=== PATIENT | female | born 1950 | race Caucasian/White ===

== ENCOUNTER 2018-07-24 10:58 | Day surgery (SDC) | payer MEDICARE ==
[2018-07-24 11:57] VITALS: BMI 24.5
[2018-07-24] MEDS ORDERED: Propofol 10 mg/ml Inj (20 ML) ONE (12:55)
[2018-07-24] MEDS ORDERED: Vasopressin 20 Units/ml Inj ONE (13:18)
[2018-07-24] MEDS ORDERED: Lidocaine Hydrochloride 5 ML INJ ONE (13:22)
[2018-07-24] MEDS ORDERED: HYDROmorphone 0.5 mg/0.5 ml ISec IVP PRN (13:40)
[2018-07-24] MEDS ORDERED: HYDROmorphone 0.5 mg/0.5 ml ISec ONE (13:43)
[2018-07-24 15:56] VITALS: RESP 15
[2018-07-24 15:59] VITALS: BP 113/71; PULSE 71; TEMP 97.9; O2SAT 98
--- NOTE | 2018-07-25 06:51 | OP ---
PROCEDURE DATE: 07/24/2018 PREOPERATIVE DIAGNOSIS: Endometrial polyp. POSTOPERATIVE DIAGNOSIS: Endometrial polyp. INDICATIONS: The patient is a 67-year-old with endometrial polyp found on ultrasound. She was counseled for the above procedure and risks, benefits, and alternatives were discussed. Consents were signed and we proceeded to the OR. OPERATIVE PROCEDURE: The patient was taken to the OR where anesthesia was found to be adequate. She was prepped and draped in the usual sterile fashion in dorsal lithotomy position. The cervix was grasped with a single-tooth tenaculum. It was serially dilated to allow introduction of operative hysteroscope. The cavity was visualized with the findings below. The specimen and the endometrium were circumferentially resected completely with the MyoSure device. There was no evidence of perforation at the end of the case. All laps and needle counts were correct. The patient tolerated the procedure well. FINDINGS: Atrophic endometrium except for endometrial polyp that was completely resected in the left cornua. No evidence of perforation. CONDITION: Stable for PACU. DEFICIT: 127 mL of normal saline. ESTIMATED BLOOD LOSS: 10 mL. Ashley Jeong MD
== END 2018-07-24 15:10 | disposition home or self-care (01) ==
LOC: C.SDS 10:58
PROVIDERS: ATTEND Obstetrics & Gynecology
DX: N84.0 Polyp of corpus uteri (principal); I10 Essential (primary) hypertension
CPT/HCPCS: 58558; 88305; J1170; J1885; J2405; J2704; J3010